=== PATIENT | male | born 1975 | race Two or more races ===

== ENCOUNTER 2018-04-29 11:00 | Day surgery (SDC) | payer OTHER ==
[2018-04-29] MEDS ORDERED: ceFAZolin 2 GM/DEXTROSE 100 ML IV ONE (11:50)
--- NOTE | 2018-04-30 06:45 | GOP ---
[f rep st] OPERATIVE REPORT DATE OF OPERATION: SURGEON: Jeffrey Santos MD ANESTHESIA: General. PREOPERATIVE DIAGNOSIS: Right displaced ulnar shaft fracture. POSTOPERATIVE DIAGNOSIS: Right displaced ulnar shaft fracture. PROCEDURE PERFORMED: Right ulnar shaft open reduction, internal fixation. FINDINGS: ESTIMATED BLOOD LOSS: 1 cc. INDICATIONS: The patient is a 42-year-old male who sustained this injury several days ago while performing martial arts. He struck a metal plate and had some pain. He was seen in an Urgent Care. X-rays were taken which showed a displaced ulnar shaft fracture. I then saw him in clinic. We reviewed the x- rays. He had 100% displacement of the ulnar shaft fracture. With the 100% displacement, ORIF was indicated. We discussed risks and benefits. Risks include pain, bleeding, infection, damage to surrounding structures, delayed union, nonunion, wound healing complications, nerve irritation, need for further surgery, including implant removal, symptomatic hardware. He understood these risks and wished to proceed. DESCRIPTION OF PROCEDURE: Patient was seen in preoperative holding area. He was given the opportunity to ask any questions. All his questions were answered. Consent was signed. Surgical site was marked. He was transferred to operative suite. Care was taken to pad all bony prominences on the gurney. Time-out was called including surgical and anesthesia teams confirming surgical site and procedure to be performed. 2 g of Ancef were given prior to incision. The right upper extremity was prepped and draped in the usual sterile fashion. Esmarch was used to exsanguinate the right upper extremity and the tourniquet was inflated to 250 mmHg. The procedure was performed in the supine position. I made an incision over the ulna shaft and split the interval between the ECU and FCU. I identified the fracture site, irrigated the fracture site. I elevated the periosteum around the fracture to allow placement of the plate. I then placed a 7 lag screw in a standard lag fashion. This was a short oblique fracture. This gave me some nice compression and held the reduction nicely. Then I placed a 6-hole small frag plate over the ulnar surface. I used a small frag cortical screw to hold the plate down to the bone. I checked the position and satisfied with the position, I placed the remainder of the screws. These were all nonlocking screws. They all had very good bite. I then took final x-rays. I was very happy with the final x-rays, showing good and normal rotation. The fracture was stable. I irrigated copiously with sterile saline. I closed the periosteum over the plate with running Vicryl. Then I also closed the interval between the ECU and FCU over the plate until the plate was fully covered. I then closed the wound in layers. . Steri-Strips were applied. Sterile dressing was applied. Patient placed in a volar slab splint, awakened from general anesthesia in stable condition and taken to PACU in stable condition. IMPLANTS USED: Synthes small frag plating system. POSTOPERATIVE CONDITION: Stable. POSTOPERATIVE PLAN: The patient will follow up with me in 10-14 days. I will have him see a hand therapist to make a splint. /[id number]/MODL MTDD
[2018-04-30] MEDS ORDERED: ceFAZolin 2 GM/DEXTROSE 100 ML IV ONE (07:06)
== END 2018-04-29 16:17 | disposition home or self-care (01) ==
LOC: FSGY 11:00
PROVIDERS: ATTEND Orthopaedic Surgery Hand Surgery
PROC: 0PSK04Z Reposition Right Ulna with Internal Fixation Device, Open Approach (ICD-10-PCS; principal; 2018-04-29 12:15)
DX: S52.201A Unspecified fracture of shaft of right ulna, initial encounter for closed fracture (principal); W22.8XXA Striking against or struck by other objects, initial encounter; Y93.75 Activity, martial arts
CPT/HCPCS: C1713

== ENCOUNTER → 2018-06-08 | Outpatient (CLI) | payer OTHER | LOC: BMCIMAGING 08:11 | PROVIDERS: ATTEND Orthopaedic Surgery Hand Surgery | DX: S52.241A Displaced spiral fracture of shaft of ulna, right arm, initial encounter for closed fracture (principal) ==